=== PATIENT | female | born 1985 | race Caucasian/White ===

== ENCOUNTER → 2021-04-03 | Day surgery (SDC) | payer OTHER ==
[~2021-04-03] VITALS: Ht 167.6 cm; Wt 108.0 kg
[~2021-04-03] MED LIST: BRIN20TA PO; CLARITIN10 M2 PO; COZAAR100 MG PO; IBUPROFEN800 M1 PO; MEDROL 4MG DOSEP4 MG PO; NORCO 5-325 TA1 EACH PO; REXULTI1 MG PO; SINGULAIR10 MG PO; VYVANSE50 MG PO; ZOFRAN4 M1 PO
[2021-04-03 07:30] LABS: HCG (URINE) SCREEN NEGATIVE (NEGATIVE)
[2021-04-03 08:37] LABS: CREATININE 0.58 mg/dL (0.51-0.95)
[2021-04-03 08:38] LABS: POTASSIUM 4.2 mmol/L (3.5-5.1)
== END | disposition home or self-care (01) ==
LOC: FAS 04-02 08:00
PROVIDERS: Anesthesiology; Obstetrics & Gynecology
DX: N93.9 Abnormal uterine and vaginal bleeding, unspecified (principal); N94.6 Dysmenorrhea, unspecified; R53.83 Other fatigue; N83.8 Other noninflammatory disorders of ovary, fallopian tube and broad ligament; E66.9 Obesity, unspecified; Z68.39 Body mass index [BMI] 39.0-39.9, adult; I10 Essential (primary) hypertension; F32.9 Major depressive disorder, single episode, unspecified; F41.9 Anxiety disorder, unspecified; E04.9 Nontoxic goiter, unspecified; F17.210 Nicotine dependence, cigarettes, uncomplicated
CPT/HCPCS: 36415; 80048; 84703; 93005; J1100; J1170; J2250; J2370; J2405; J2704; J2710; J3010; J7120